=== PATIENT | female | born 1980 | race African-American/Black ===

== ENCOUNTER → 2020-08-21 | Outpatient (CLI) | payer OTHER ==
--- NOTE | 2020-08-21 13:24 | RAD ---
XR LUMBAR SPINE 2-3V DATE: 08/21/2020 10:19 AM INDICATION: Reason: CHRONIC LOWER BACK PAIN. HX OF FALLS / Spl. Instructions: / History: COMPARISON: None. FINDINGS: Five non-rib bearing lumbar-type vertebral bodies are present. Bones/Alignment: No evidence of acute compression fracture. There is no listhesis. Joints: There is no disc space loss. Miscellaneous: None. IMPRESSION: Vertebral body heights, alignment, and disc spaces are preserved Electronically signed by: Neil Fritz MD (08/21/2020 1:22 PM) [id number]
--- NOTE | 2020-08-21 13:26 | RAD ---
XR KNEE_LT 1-2 VIEWS DATE: 08/21/2020 10:19 AM INDICATION: CHRONIC LEFT KNEE PAIN COMPARISON: None. FINDINGS: Bones: There is no evidence of acute fracture or dislocation. Joints: Mild degenerative joint space narrowing of the medial and lateral compartments of the knee. There is no joint effusion. Miscellaneous: None. IMPRESSION: Mild degenerative joint space narrowing of the medial and lateral compartments of the knee. Electronically signed by: Neil Fritz MD (08/21/2020 1:24 PM) [id number]
== END ==
LOC: RAD 09:56
PROVIDERS: ATTEND Family Medicine
DX: Z02.71 Encounter for disability determination (principal); M17.12 Unilateral primary osteoarthritis, left knee
CPT/HCPCS: 72100; 73560